=== PATIENT | male | born 1965 | race Caucasian/White ===

== ENCOUNTER → 2023-09-30 07:16 | Outpatient (REF) | payer OTHER, SELFPAY | LOC: HWRCS 07:16 | PROVIDERS: ATTENDING PHYSICIAN Internal Medicine Cardiovascular Disease; FAMILY PHYSICIAN Family Medicine | DX: R94.31 Abnormal electrocardiogram [ECG] [EKG] (principal) | CPT/HCPCS: 93306 ==

== ENCOUNTER → 2023-10-04 12:54 | Outpatient (REF) | payer OTHER, SELFPAY | LOC: RCS 12:54 | PROVIDERS: ATTENDING PHYSICIAN Internal Medicine Cardiovascular Disease; FAMILY PHYSICIAN Family Medicine | DX: R94.31 Abnormal electrocardiogram [ECG] [EKG] (principal) | CPT/HCPCS: 93017; 93350 ==

== ENCOUNTER 2024-01-25 06:07 | Emergency (ER) | payer OTHER, SELFPAY ==
[2024-01-25] VITALS (10 sets, daily range): BP systolic 123–153; BP diastolic 78–103; PULSE 75–85; BMI 28.1
[2024-01-25 06:45] LABS: % Basophils 0.7 % (0-2); % Eosinophils 2.5 % (0-6); % Immature Granulocytes 0.2 % (0-0.5); % Lymphocytes 40.7 % (20.5-51.1); % Monocytes 11.3 % (1.7-9.3); % Neutrophils 44.6 % (42.2-75.2); Absolute Eosinophils 0.2 10^3/uL (0-0.7); Absolute Lymphocytes 2.5 10^3/uL (1.2-3.4); Absolute Monocytes 0.7 10^3/uL (0.1-0.6); Absolute Neutrophils 2.7 10^3/uL (1.4-6.5); Hematocrit 40.2 % (39.0-52.0); Hemoglobin 14.2 g/dL (13.0-18.0); Mean Corp Hgb Conc. 35.3 g/dL (33.0-37.0); Mean Corpuscular Hgb 31.3 pg (27.0-31.0); Mean Corpuscular Volume 88.5 fL (80.0-94.0); Mean Platelet Volume 10.8 fL (7.4-10.4); Nucleated Red Blood Cells % 0 % (-); Platelet Count 317 10^3/uL (130-400); Red Blood Cell Count 4.54 10^6/uL (4.70-6.10); Red Cell Dist. Width 11.9 % (11.5-14.5); White Blood Cell Count 6.1 10^3/uL (4.8-10.8)
[2024-01-25 06:49] LABS: D-Dimer 0.29 ug/mlFEU (0.00-0.50)
[2024-01-25 06:55] LABS: ALT (SGPT) 26 U/L (0-50); AST (SGOT) 34 U/L (17-59); Albumin 4.7 g/dl (3.5-5.0); Alkaline Phosphatase 85 U/L (38-126); Blood Urea Nitrogen 20 mg/dl (9-20); Carbon Dioxide 25 mmol/L (22-30); Chloride 105 mmol/L (98-107); Estimated Creatinine Clearance 77 ml/min; Glucose 105 mg/dl (70-99); Lipase 211 U/L (23-300); Sodium 140 mmol/L (135-145); Total Bilirubin 1.2 mg/dl (0.2-1.3); Total Protein 7.1 g/dl (6.3-8.2); eGFR > 60.00
[2024-01-25 07:06] LABS: Troponin I < 0.012 ng/ml
[2024-01-25] MEDS: NSS 500 IV (07:36)
--- NOTE | 2024-01-25 08:47 | ED.GENMED ---
History of Present Illness
General
Chief Complaint: Chest Pain
Source: patient and ambulance crew
Exam Limitations: none
Time Seen by Provider: 01/25/24 06:11
Nursing documentation reviewed up to this point in time: agreed with
History of Present Illness
History of Present Illness:
58-year-old male with a past medical history of GERD and Ruby esophagus, anxiety who presents to the emergency department for evaluation after an episode of chest pain and sweatiness, lightheadedness. Patient reports onset of symptoms this
morning�he says that he woke up around 5 AM and had a brief episode of chest discomfort that lasted for a minute or 2 and resolved�he reported a tight/heavy feeling in the left side of his chest. He says that he had associated profuse diaphoresis
and that persisted beyond the chest pain. He says that diaphoresis was severe to the point that he needed to get into the shower to rinse off. He says that while he was in the shower he began to feel lightheaded as if he might pass out although he
did not pass out or lose consciousness. He says that he had a sensation like something was stuck in his throat. He called EMS to bring her to the hospital and he says that symptoms resolved shortly after arrival. He now feels 'shaky' but denies
any chest pain or sweatiness or any other complaints. He denies having had similar symptoms in the past. He denies any known cardiac history although he does report that he had cardiac testing done recently as part of a routine checkup that was
apparently reassuring�chart review shows patient had an echocardiogram in September that showed no concerning abnormalities. He also reports that he had a stress test around the same time that was reportedly normal. Patient is also reporting that he
had a sinus surgery earlier this year; he says that he had an episode of headache and dizziness recently and was told that he had 'fluid on my brain related to the humidity.'
Past History
Past History
ED Past Medical History: Other (Ruby's, chronic sinusitis, asthma)
ED Past Surgical History: Cholecystectomy and Other (Hernia repair, nasal polyps)
Social History
Tobacco: Non-smoker
Alcohol: None
Drug: None
Review of Systems
Review of Systems
All Other Systems: ROS reviewed and negative except as documented in HPI and ROS
Constitutional: Denies fever or chills
Respiratory: Denies cough or trouble breathing
Cardiac: Reports chest pain and diaphoresis; Denies palpitations
ABD/GI: Denies abdominal pain, nausea or vomiting
: Denies flank pain
Musculoskeletal: Denies edema, neck pain or back pain
Neurological: Reports dizzy; Denies headache
Phy Exam
Physical Exam
Physical Exam:
General: Awake, alert, oriented x3; anxious but no acute distress
Head: Normocephalic, atraumatic
Eyes: Conjunctiva normal, sclera anicteric
Throat: Airway intact, handling secretions
Neck: Trachea midline, supple without meningismus
Lungs: Clear to auscultation bilaterally, no wheezing, rales, rhonchi
Heart: Regular rate and rhythm, no murmurs, gallops, or rubs
Abd: Soft, non distended, nontender
Neuro: No gross deficits
Skin: no rash
Extremities: No edema in extremities, equal pulses in all extremities
Scores
Heart Failure Risk
Heart Failure Risk Score: Not Applicable
Heart Score for Chest Pain Patients
STEMI patient?: No
History: Moderately Suspicious
ECG: Normal
Age: >45 - <65 years
Risk Factors: 1 or 2 Risk Factors
Troponin: </= Normal Limit
Heart Score for Chest Pain Patients: 3
Heart Score Risk: 2.5% MACE over next 6 weeks
Withdrawal Assessment of Alcohol
Withdrawal Assessment Completed?: Not applicable
Course
Orders/Labs/Results
Orders:
Orders
01/25/24 06:22
Electrocardiogram (*1) Urgent
Reason for Study: Chest Pain
EKG- Treatment ONCE
01/25/24 06:23
CT Head W/o Iv Contrast Urgent
Comment:
Reason For Exam: dizziness, headache
Orthostatic VS- Treatment ONCE
0.9% Sodium Chloride 500 ml [Nss] 500 ml IV BOLUS
CR Chest - 2 Views Urgent
Comment:
Reason For Exam: chest pain
01/25/24 06:26
Complete Blood Count/With Diff Urgent
Comprehensive Metabolic Panel Urgent
Lipase Urgent
Troponin I Urgent
01/25/24 06:27
D-Dimer Urgent
01/25/24 09:26
Troponin I Urgent
Abnormal Lab Results
01/25/24
06:26
RBC 4.54 L 10^6/uL
(4.70-6.10)
MCH 31.3 H pg
(27.0-31.0)
MPV 10.8 H fL
(7.4-10.4)
Absolute Monos (auto) 0.7 H 10^3/uL
(0.1-0.6)
Monocytes % 11.3 H %
(1.7-9.3)
Glucose 105 H mg/dl
(70-99)
01/25/24 06:26
01/25/24 06:26
Vital Signs
Initial and Last Documented VS:
Initial Vital Signs
BP
140/103
01/25/24 06:21
Last Documented Vital Signs
Temp Pulse Resp BP Pulse Ox
36.7 C 78 16 130/98 98
01/25/24 09:04 01/25/24 09:04 01/25/24 09:04 01/25/24 09:04 01/25/24 09:04
MDM/Problems Addressed
Differential Diagnosis Includes:
ACS/angina, GERD/esophagitis, panic attack/anxiety, cardiac dysrhythmia
MDM/Problems Addressed:
58-year-old male with history as documented presents after an episode of transient chest pain followed by diaphoresis and dizziness�symptoms have essentially resolved although he still feels slightly 'shaky' here. Hypertensive on triage but vital
signs normalized by my assessment. Physical exam as above. EKG shows no STEMI. Plan to place an IV check labs including a CBC and a CMP, serial troponins. Check D-dimer. Will check chest x-ray. He does report recently abnormal CT head although
unclear exactly what the abnormality was�patient describes some 'humidity' related abnormality in the setting of recent sinus surgery. Will check CT head here. Will check orthostatic vital signs. Provide some IV fluids. Reassess after the above.
Patient had an episode of emesis shortly after initial assessment and says his symptoms have completely resolved. Appears very well with normal vitals. Initial labs reviewed: CBC unremarkable, CMP no clinically significant abnormalities. Initial
troponin undetectable. D-dimer negative. Chest x-ray shows no acute disease. CT head negative for any acute pathology. Plan was to monitor for recurrence of symptoms and to have a repeat troponin to rule out acute ID. Patient is requesting
discharge and refusing repeat troponin. I had a long discussion with the patient�he is convinced that the symptoms were GI related as they seem to completely resolved after he vomited shortly after arrival here. I tend to agree based on the full
clinical picture. He does have a known history of GERD and Ruby's esophagus. Furthermore he is reassured by his recently normal outpatient cardiac assessment. I explained to him the limitations of outpatient cardiac testing and explained the
limitations of evaluation with a single troponin here for ruling out acute ID. I explained that the standard of care is for a repeat troponin to rule out acute ID prior to discharge after an episode like this. He indicated understanding that we
have not been able to rule out acute ID completely but still wishes to be discharged from the hospital. He will be discharged in keeping with his wishes�I encouraged him to follow-up with cardiology and his primary doctor and return with recurrence
of symptoms immediately.
Acute Exacerbation and/or Progression of Chronic Illness:
Acutely hypertensive resolved without intervention continue to monitor but no additional antihypertensives indicated
Acute Exacerbation and/or Progression of Chronic Illness: HTN
*Radiology
Radiology exam reviewed: preliminary read by ED provider and radiology read reviewed
*Pulse Oximetry
Patient hypoxic: no
*EKG
Interpreted by ED Provider?: Yes
Comparison EKG: no changes
Heart Rate: 78
Rate: normal
Rhythm: sinus
[place]: left axis deviation
Interval: normal interval
QRS Pattern: normal QRS
Ischemia: no ischemia
*Critical Care Note
Total Time (30-74mins, 75-104mins- exclusive of procedures): Not Applicable
Data Reviewed
Review of Other/Old Records Reveals: Labs, Records and Testing
Source: patient, records and ambulance crew
ED Attending Note
-
Portions of this chart may have been created with voice recognition software.� Occasional wrong word or��sound alike� substitutions may have occurred due to the inherent limitations of voice recognition software.
Discharge Plan
Departure
Patient Disposition: Home (Routine Discharge)
Date of Disposition: 01/25/24
Time of Disposition: 09:27
Patient with high blood pressure during this ER visit?: Yes
Discharge Problem:
Chest pain
Instructions: Chest Pain CBC Follow Up
Prescriptions:
No Action
omeprazole 40 MG capsule,delayed release(DR/EC)
40 mg PO DAILY
oxycodone-acetaminophen 5 MG/325 MG tablet
1 tab PO Q4HPRN PRN (Reason: moderate to severe pain) Qty: 15 0RF
Referrals:
Reggie Stephens MD [Active] - Call in 1-3 days for appt
Markel Mesa MD [Family Provider] -
Activity Restrictions/Additional Instructions:
Thank you for visiting the Emergency Department at [facility].
1. Please schedule a follow up appointment as directed. Call first thing tomorrow morning to make an appointment.
2. If indicated, please take your medications as instructed and indicated on discharge paperwork.
3. If any of your symptoms do not improve, or persist, or become more severe within 6-12 hours, please return to the emergency department for further care.
4. Please return to the emergency department if you develop a headache, neck pain/stiffness, fever greater than 100.4F, chest pain, shortness of breath, persistent nausea, vomiting, slurred speech, difficulty walking, numbness/tingling, weakness,
signs of infection or any other symptoms that are worrisome to you.
Please call [phone] if you have any questions.
Interventions
Interventions:
*Risk Screen - Suicide Last Done: 01/25/24 06:09
*General Assessment Last Done: 01/25/24 06:09
*Neglect/Abuse Screening Last Done: 01/25/24 06:09
ED- Fall Risk Assessment Last Done: 01/25/24 06:22
*ED COVID-19 Vaccine History Last Done: 01/25/24 06:09
ED- Cardiac Assessment Last Done: 01/25/24 06:22
Discharge Date and Time
Print Language: URDU
--- NOTE | 2024-01-25 09:33 | EDRN ---
Reviewed discharge instructions with patient. Verbalized understanding. Ambulated with steady gait to the lobby.
== END 2024-01-25 09:30 | disposition home or self-care (01) ==
LOC: EMR 06:07
PROVIDERS: EMERGENCY PHYSICIAN Emergency Medicine; FAMILY PHYSICIAN Family Medicine
DX: R07.89 Other chest pain (principal); R03.0 Elevated blood-pressure reading, without diagnosis of hypertension; K21.9 Gastro-esophageal reflux disease without esophagitis; F41.9 Anxiety disorder, unspecified
CPT/HCPCS: 99285; 96360; 70450; 71046; 80053; 83690; 84484; 85025; 85379; 93005

== ENCOUNTER 2024-01-26 19:02 | Emergency (ER) | payer OTHER, SELFPAY ==
[2024-01-26 19:04] VITALS: BP 125/92
--- NOTE | 2024-01-26 19:21 | ED.GENMED ---
History of Present Illness
General
Chief Complaint: Back Pain
Source: patient
Exam Limitations: none
Time Seen by Provider: 01/26/24 19:10
History of Present Illness
History of Present Illness:
This is a 58 year old male that comes in with with left flank pain. States that this started this morning with pain on the right sided and he wasn't able to get comfortable. State that the pain moved all to the left sided and comes around the side
into his thigh. States that he was als here yesterday as he had some chest tightness and just didn't fell well and he was discharged. States that he has been urinating a little more frequently. Denies any fever, chills, chest pain, SOB, abd pain,
nausea, vomiting, diarrhea, headache, dizziness, urinary burning.
Past History
Past History
ED Past Medical History: Asthma, GERD, Psychiatric (Anxiety, Depression, Panic disorder) and Other (Ruby's, chronic sinusitis, Neck pain, C-spine herniation, Diverticulitis, )
ED Past Surgical History: Cholecystectomy, Urological (Vericoseal) and Other (Hernia repair, Sinus surgery 9 tmes, )
Social History
Tobacco: Non-smoker
Alcohol: Occasional
Drug: None
Personal:
Living: with family
Review of Systems
Review of Systems
All Other Systems: ROS reviewed and negative except as documented in HPI and ROS
Constitutional: Reports no symptoms; Denies fever or chills
EENT: Reports no symptoms
Respiratory: Reports no symptoms; Denies cough or trouble breathing
Cardiac: Reports no symptoms; Denies chest pain
ABD/GI: Reports no symptoms; Denies abdominal pain, nausea, vomiting or diarrhea
: Reports flank pain (Left sided)
Musculoskeletal: Reports no symptoms
Skin: Reports no symptoms
Neurological: Reports no symptoms; Denies dizzy or headache
Psychiatric: Reports no symptoms
Phy Exam
General Physical Exam
General Presentation: mild distress
General age: appears stated age
General Skin: warm and dry
General Habitus: normal
General Mental: alert
General Hydration: dry mucous membranes
ENT Exam
ENT Exam: TM's normal, pharynx normal and neck supple
Eye Exam
Eye Exam: EOMI
Cardiovascular Exam
Cardiovascular Exam: regular rate/rhythm, no edema, no murmur and normal peripheral pulses
Pulmonary Exam
Pulmonary Exam: lungs clear, no respiratory distress, no rales, chest non tender, no crackles, no rhonchi, no wheezing and no cough
Gastrointestinal Exam
Gastrointestinal Exam: normal bowel sounds, non tender, soft, no organomegaly, no pulsatile mass, non distended and cva tenderness (Slight left sided)
Musculoskeletal Exam
Musculoskeletal Exam: full ROM and no edema
Skin Exam
Skin Exam: normal color, warm/dry, no rash and no petechia
Psychiatric Exam
Psychiatric Exam: normal mood/affect
Course
Orders/Labs/Results
Orders:
Orders
01/26/24 19:19
0.9% Sodium Chloride 1000 ml [Nss] 1,000 ml IV BOLUS
HYDROmorphone [Dilaudid] 1 mg IV NOW STA
Ketorolac [Toradol] 30 mg IV NOW STA
Ondansetron Injectable [Zofran] 4 mg IV NOW STA
01/26/24 19:20
CT Abd/pel Without Iv Or Oral Urgent
Comment:
Reason For Exam: Left flank pain
01/26/24 19:31
Complete Blood Count/With Diff Urgent
Comprehensive Metabolic Panel Urgent
01/26/24 19:32
Urinalysis Reflex To Culture Urgent
Date Specimen was Collected: 01/26/24
Time Specimen was Collected: 19:31
01/26/24 20:16
Dexamethasone Sod Phosphate [Decadron] 20 mg IV NOW STA
Abnormal Lab Results
01/26/24
19:31
RBC 4.50 L 10^6/uL
(4.70-6.10)
MCH 31.6 H pg
(27.0-31.0)
Glucose 106 H mg/dl
(70-99)
Total Bilirubin 1.9 H mg/dl
(0.2-1.3)
01/26/24 19:31
01/26/24 19:31
Glucose nonfasting. Total oswald elevation. Urine negative for infection or blood
Vital Signs
Initial and Last Documented VS:
Initial Vital Signs
Temp Pulse Resp BP Pulse Ox
97.9 F 96 28 125/92 100
01/26/24 19:04 01/26/24 19:04 01/26/24 19:04 01/26/24 19:04 01/26/24 19:04
Last Documented Vital Signs
Temp Pulse Resp BP Pulse Ox
97.9 F 75 20 105/69 98
01/26/24 19:04 01/26/24 21:31 01/26/24 21:31 01/26/24 21:31 01/26/24 21:31
MDM/Problems Addressed
Differential Diagnosis Includes:
Renal calculus, Sciatic pain
MDM/Problems Addressed:
This is a 58 year old male that comes in with c/o left flank pain. States that this started this morning out of the blue and it started on the right sided and moved to the left.
Will get labs CT scan, IV fluids and medicate for pain.
Back into see patient. Reviewed labs and CT findings. Explained that this is most likely sciatic. Patient states that he has had sciatic pain on the right before but not on the left. Explained that he has been given a steroid here and he can
alternate with Ibuprofen and Tylenol for pain. Heat or ice to help with pain. Will also give patient a Muscle relaxer. Patient to follow up with the family doctor. Return with any concerns.
Chronic conditions affecting care:
NA
Acute Exacerbation and/or Progression of Chronic Illness:
NA
*Radiology
Radiology exam reviewed: radiology read reviewed (CT-NO urinary tract calculus or dilation bilaterally. Sigmoid divertculosis. )
*Pulse Oximetry
Patient hypoxic: no
*EKG
Interpreted by ED Provider?: NA
Rate: EKG- N/A
*Banking Assistant Interpretation
Rate: Banking Assistant- N/A
*Critical Care Note
Total Time (30-74mins, 75-104mins- exclusive of procedures): Not Applicable
ED Attending Note
-
Portions of this chart may have been created with voice recognition software.� Occasional wrong word or��sound alike� substitutions may have occurred due to the inherent limitations of voice recognition software.
Discharge Plan
Departure
Patient Disposition: Home (Routine Discharge)
Date of Disposition: 01/26/24
Time of Disposition: 21:41
Patient with high blood pressure during this ER visit?: No
Condition: Good
Covid-19: Not Applicable
Discharge Problem:
Left sciatic nerve pain
Instructions: Sciatica (DC)
Prescriptions:
New
cyclobenzaprine 10 mg tablet
10 mg PO HS PRN (Reason: Muscle relaxer) Qty: 7 0RF
No Action
omeprazole 40 MG capsule,delayed release(DR/EC)
40 mg PO DAILY
oxycodone-acetaminophen 5 MG/325 MG tablet
1 tab PO Q4HPRN PRN (Reason: moderate to severe pain) Qty: 15 0RF
Referrals:
Markel Mesa MD [Family Provider] - Follow up in 2-3 days
Activity Restrictions/Additional Instructions:
As discussed, your blood work is normal. Your Urine is negative for any blood or infection. Your CT scan is negative for any acute process. There is diverticulosis but no diverticulitis. This is most likely sciatic pain. You have been given IV
steroids here. You may alternate with Tylenol 1000mg every 6 hours and Ibuprofen 600mg every 6 hours with food for pain. You can use heat or ice which ever works better to help with pain. You have had a Prescription for a muscle relaxer sent to
your Pharmacy. Please follow up with the family doctor for recheck. IF YOU HAVE ANY OTHER CONCERNS PLEASE RETURN TO THE EMERGENCY ROOM.
Interventions
Interventions:
*Risk Screen - Suicide Last Done: 01/26/24 19:04
*General Assessment Last Done: 01/26/24 20:00
*Neglect/Abuse Screening Last Done: 01/26/24 19:04
ED- Fall Risk Assessment Last Done: 01/26/24 20:08
QB-Bbhutk-Hnrqkpljpn Assessment Last Done: 01/26/24 20:08
ED-Male Genitourinary Assessment Last Done: 01/26/24 20:08
ED-Musculoskeletal Assessment Last Done: 01/26/24 20:08
Discharge Date and Time
Print Language: MARSHALLESE
[2024-01-26 19:40] LABS: % Basophils 0.7 % (0-2); % Eosinophils 0.7 % (0-6); % Immature Granulocytes 0.3 % (0-0.5); % Monocytes 7.2 % (1.7-9.3); % Neutrophils 68.1 % (42.2-75.2); Absolute Basophils 0.1 10^3/uL (0-0.2); Absolute Eosinophils 0.1 10^3/uL (0-0.7); Absolute Lymphocytes 1.7 10^3/uL (1.2-3.4); Absolute Monocytes 0.5 10^3/uL (0.1-0.6); Absolute Neutrophils 5.1 10^3/uL (1.4-6.5); Hematocrit 39.2 % (39.0-52.0); Hemoglobin 14.2 g/dL (13.0-18.0); Mean Corp Hgb Conc. 36.2 g/dL (33.0-37.0); Mean Corpuscular Hgb 31.6 pg (27.0-31.0); Mean Corpuscular Volume 87.1 fL (80.0-94.0); Mean Platelet Volume 10.4 fL (7.4-10.4); Nucleated Red Blood Cells % 0 % (-); Platelet Count 306 10^3/uL (130-400); Red Cell Dist. Width 11.8 % (11.5-14.5); White Blood Cell Count 7.4 10^3/uL (4.8-10.8)
[2024-01-26 19:41] LABS: Urine Albumin Negative (Neg - Trace); Urine Bilirubin Negative (Negative); Urine Character Clear (Clear); Urine Color Yellow; Urine Glucose Negative (Negative); Urine Ketone Negative (Negative); Urine Leukocyte Negative (Negative); Urine Nitrite Negative (Negative); Urine Occult Blood Negative (Negative); Urine Urobilinogen Negative (Neg - 1+)
[2024-01-26] MEDS: DILAUDID 1 MG IV (19:45)
[2024-01-26] MEDS: NSS 1000 IV (19:45)
[2024-01-26] MEDS: ZOFRAN 4 MG IV (19:46)
[2024-01-26] MEDS: TORADOL 30 MG IV (19:46)
[2024-01-26 20:00] LABS: ALT (SGPT) 25 U/L (0-50); AST (SGOT) 32 U/L (17-59); Albumin 4.6 g/dl (3.5-5.0); Alkaline Phosphatase 92 U/L (38-126); Blood Urea Nitrogen 14 mg/dl (9-20); Carbon Dioxide 22 mmol/L (22-30); Chloride 105 mmol/L (98-107); Glucose 106 mg/dl (70-99); Potassium 3.8 mmol/L (3.5-5.1); Sodium 137 mmol/L (135-145); Total Bilirubin 1.9 mg/dl (0.2-1.3); Total Protein 7.3 g/dl (6.3-8.2); eGFR > 60.00
[2024-01-26] MEDS: DECADRON 20 MG IV (21:22)
[2024-01-26 21:31] VITALS: BP 105/69
[2024-01-26 21:59] VITALS: BP 105/69
[2024-01-26] MEDS: FLEXERIL 10 MG PO (22:01)
[2024-01-26] MEDS: TYLENOL 1000 MG PO (23:04)
[2024-01-26 23:09] VITALS: BP 142/80
== END 2024-01-26 23:15 | disposition home or self-care (01) ==
LOC: EMR 19:02
PROVIDERS: Clinical Nurse Specialist Family Health; EMERGENCY PHYSICIAN Emergency Medicine; FAMILY PHYSICIAN Family Medicine
DX: M54.32 Sciatica, left side (principal)
CPT/HCPCS: 99284; 96374; 96375 ×3; 96361 ×2; 74176; 80053; 81003; 85025